=== PATIENT | female | born 1945 | race African-American/Black ===

== ENCOUNTER 2016-12-18 11:01 | Emergency (ER) | payer OTHER ==
--- NOTE | ~2016-12-18 | EGD ---
EGD REPORT [facility] [address] [place] [address] NAME: JOSE HARDEN : [birth year] STATUS : REG ER PAT#: [id number] AGE: 71 ADM/REG DATE : 12/18/16 MR#: [id number] REPORT SERV DATE: 12/18/16 DICTATED BY: EMRE LIPSCOMB DATE: 12/18/16 REPORT STATUS : Draft [facility]ANS[facility]IBED BY: [facility] DATE: 12/18/16 Endoscopy Center Patient Name: Jose Harden Date of : 1945 Attending MD: EMRE LIPSCOMB MD Procedure Date No Time: 12/18/2016 Procedure: Upper GI endoscopy Indications: Dysphagia Referring MD: NIKOLAI LAWTON MD Medicines: Sedation Required Anesthesia Staff Assistance, Monitored Anesthesia Care Complications: No immediate complications. Procedure: Pre-Anesthesia Assessment: - ASA Grade Assessment: III - A patient with severe systemic disease. - General anesthesia under the supervision of an anesthesiologist was determined to be medically necessary for this procedure based on review of the patient's medical history, medications, and prior anesthesia history. After obtaining informed consent, the endoscope was passed under direct vision. Throughout the procedure, the patient's blood pressure, pulse, and oxygen saturations were monitored continuously. The GIF [id number] was introduced through the mouth, and advanced to the second part of duodenum. The upper GI endoscopy was accomplished without difficulty. The patient tolerated the procedure well. Findings: LA Grade A (one or more mucosal breaks less than 5 mm, not extending between tops of 2 mucosal folds) esophagitis with no bleeding was found in the lower third of the esophagus. Biopsies were taken with a cold forceps for histology. No endoscopic abnormality was evident in the esophagus to explain the patient's complaint of dysphagia. It was decided, however, to proceed with dilation of the entire esophagus. A guidewire was placed and the scope was withdrawn. Dilation was performed with a Savary dilator with mild resistance at 42 Fr and mild resistance at 45 Fr. Striped mildly erythematous mucosa without bleeding was found in the gastric antrum. Biopsies were taken with a cold forceps for histology. The duodenal bulb and 2nd part of the duodenum were normal. The cardia and gastric fundus were normal on retroflexion. Impression: - LA Grade A esophagitis. Biopsied. EGD REPORT [place] [id number] [facility] [place]. [address] NAME: JOSE HARDEN : [birth year] STATUS : REG ER PAT#: [id number] AGE: 71 ADM/REG DATE : 12/18/16 MR#: [id number] REPORT SERV DATE: 12/18/16 DICTATED BY: EMRE LIPSCOMB DATE: 12/18/16 REPORT STATUS : Draft TRANSCRIBED BY: [employer] DATE: 12/18/16 - No endoscopic esophageal abnormality to explain patient's dysphagia. Esophagus dilated. Dilated. - Erythematous mucosa in the antrum. Biopsied. - Normal duodenal bulb and 2nd part of the duodenum. Recommendation: - Await pathology results. - liquids for 24 hours then soft diet for 24 hours then as tolerated. - Return to GI clinic in 2 weeks. - Use Protonix (pantoprazole) 40 mg PO BID. Procedure Code(s): --- Professional --- 10941, Esophagogastroduodenoscopy, flexible, transoral; with insertion of guide wire followed by passage of dilator(s) through esophagus over guide wire 91559, Esophagogastroduodenoscopy, flexible, transoral; with biopsy, single or multiple Diagnosis Code(s): --- Professional --- K20.9, Esophagitis, unspecified R13.10, Dysphagia, unspecified K31.9, Disease of stomach and duodenum, unspecified CPT copyright 2013 [employer]. All rights reserved. The codes documented in this report are preliminary and upon clinic cma review may be revised to meet current compliance requirements. EMRE LIPSCOMB MD 12/18/2016 3:15 PM This report has been signed electronically. Number of Addenda: 0 Note Initiated On: 12/18/2016 2:25 PM Scope Withdrawal Time 0 hours 0 minutes 0 seconds [id number] [id number]
--- NOTE | ~2016-12-18 | CN ---
Consultation Report [facility] [address] [place]. [address] NAME: JOSE HARDEN : [birth year] STATUS : [facility] ER PAT#: [id number] AGE: 71 ADM/REG DATE : 12/18/16 MR#: [id number] REPORT SERV DATE: 12/18/16 DICTATED BY: EMRE LIPSCOMB DATE: 12/18/16 REPORT STATUS : Draft TRANSCRIBED BY: MODL DATE: 12/18/16 GI CONSULTATION DATE OF CONSULTATION: REASON FOR CONSULTATION: Severe dysphagia, unable to get solids down, and trouble with liquids also. HISTORY OF PRESENT ILLNESS: Ms. Harden is a 71-year-old white female, who is a patient of Dr. Mart, who has history of colon cancer and is undergoing chemotherapy. She came in with complaints of progressive dysphagia, unable to get solids down, and now having trouble with liquids also. She might have food bolus impaction. PAST MEDICAL HISTORY: Includes colon cancer, reflux, diabetes, and hypertension. FAMILY HISTORY: Noncontributory. REVIEW OF SYSTEMS: A 10-point review of systems otherwise negative. HABITS: Denies any drugs, alcohol, or tobacco currently. FAMILY HISTORY: Noncontributory. MEDICATIONS: See medication list. ALLERGIES: CELEBREX. PHYSICAL EXAMINATION: HEENT: Normocephalic, atraumatic. Extraocular muscles appear intact. NECK: Supple. No JVD. HEART: Regular without murmurs, thrills, or lifts. LUNGS: Clear to auscultation bilaterally. ABDOMEN: Soft and nontender. EXTREMITIES: No cyanosis, clubbing, or edema. LABORATORY DATA: Laboratories showed a sodium of 139, potassium 2.9, chloride 103, CO2 is 24, BUN 10, creatinine 1.15, glucose is 141, white count is 8, hemoglobin 14.3, hematocrit 40.4, platelet count 253, ALT is 83, AST is 56, alkaline phosphatase is 61. Total bilirubin is 0.9. IMPRESSION: 1. Dysphagia, possible food bolus, also concerns about Monserrat esophagitis, severe, given she is on chemo. Consultation Report [facility] [address] [place]. [address] NAME: JOSE HARDEN : [birth year] STATUS : [facility] ER PAT#: [id number] AGE: 71 ADM/REG DATE : 12/18/16 MR#: [id number] REPORT SERV DATE: 12/18/16 DICTATED BY: EMRE LIPSCOMB DATE: 12/18/16 REPORT STATUS : Draft TRANSCRIBED BY: MODL DATE: 12/18/16 2. Elevated transaminases. 3. Hypokalemia. RECOMMENDATION: 1. The patient to get some potassium supplement. 2. We will plan EGD with possible dilation. Risks and benefits of the procedure as well as possible complications of bleeding, infection, perforation, allergic reaction to the medicine were described. Questions entertained and answered. The patient understands and agrees to proceed. 3. We will see at procedure. JSM/MODL Emre Lipscomb M.D. / [id number] CC: Andrew Swift M.D.
[2016-12-18 10:47] LABS: BASOPHILS 0.1 %; BASOPHILS ABSOLUTE 0.01 10/3/uL (0.0-0.16); EOSINOPHILS 0.4 %; EOSINOPHILS ABSOLUTE 0.03 10/3/uL (0.0-0.53); ER CBC TAT 0 Hrs 10 Mins; HEMATOCRIT 40.4 % (36.0-48.0); HEMOGLOBIN 14.3 g/dL (12.0-16.0); IMMATURE GRANULOCYTES 0.3 %; IMMATURE GRANULOCYTES ABSOLUTE 0.02 10/3/uL (0.0-0.11); LYMPHOCYTES 19.7 %; LYMPHOCYTES ABSOLUTE 1.57 10/3/uL (0.67-4.30); MEAN CORPUS HGB CONC 35.4 g/dL (32.0-36.0); MEAN CORPUSCULAR HEMOGLOB 28.7 pg (26.0-34.0); MEAN CORPUSCULAR VOLUME 81.1 fL (80-100); MEAN PLATELET VOLUME 8.9 fL (9.2-13.0); MONOCYTES 7.9 %; MONOCYTES ABSOLUTE 0.63 10/3/uL (0.21-1.20); NEUTROPHILS 71.6 %; PLATELET COUNT 253 10/3/uL (150-400); RBC DISTRIBUTION WIDTH 16.9 % (12.0-16.0); RED CELL COUNT 4.98 10/6/uL (4.0-5.6)
[2016-12-18 10:48] LABS: MANUAL DIFF NO %
[2016-12-18 11:00] LABS: A/G RATIO 1.1 (0.7-1.9); ALBUMIN 3.8 G/DL (3.5-5.0); BUN (BLOOD UREA NITROGEN) 10 MG/DL (6-23); CALCIUM, SERUM 9.2 MG/DL (8.5-10.4); CHLORIDE, SERUM 103 MMOL/L (96-112); CO2 (CARBON DIOXIDE) 24 MMOL/L (24-34); CREATININE 1.15 MG/DL (0.55-1.02); GFR AFRICAN AMERICAN 56 ML/MIN (>=60); GFR NON AFRICAN AMERICAN 49 ML/MIN (>=60); GLOBULIN 3.4 G/DL (2.5-4.1); SGOT(AST) 56 U/L (5-40); SGPT(ALT) 83 U/L (5-65); SODIUM, SERUM 139 MMOL/L (135-148); TOTAL PROTEIN 7.2 G/DL (6.0-8.5)
[~2016-12-18 11:01] MED LIST: ALLEGRA180 PO; AMB10 PO; ASAB PO; ATROVENT HFA17 MCG INH; AYGESTIN5 MG PO; AZITHROMYCIN PO; BACLOFEN20 MG PO; BENICAR HCT PO; CELEXA20 PO; COMBIVENT INH; CYANO1000T PO; DULERA 200 MCG/13 GM INH; DURA12 TOP; DURA25 TOP; ELESTRIN T; ELESTRIN TOP; FLONASE NAS; GAS-X80 MG PO; GLUCPH PO; HYZAAR 100/25 T1 TAB PO; KLOR-CON 1010 MEQ PO; KLOR-CON M2020 MEQ PO; L20 PO; LEVAQUIN750 MG PO; LEVEMIR SC; LOP25 PO; MAGOX4 PO; METHOC500B PO; MINERAL OIL; MIRALAXPKT PO; MOBIC15 MG PO; MUCINEX D1 TAB PO; MUCINEX DM PO; MUCINEX DM1 TAB OR; MULTIPLE VIT PO; NORV10 PO; NOVOLOG SC; OMNARIS; OPTIVE1 ML OP; OS500+D PO; OXYCOD PO; OXYCONTIN15 MG PO; PATADAY; PERCOCET1 TA2 PO; PRILOSEC40 MG PO; PROVHFA INH; ROXICODONE15 MG PO; SINGULAIR1 PO; STERAPRED DS10 MG; SYN.15 PO; SYN125 PO; SYNTHROID PO; VIBRATAB100 MG PO; VITAMIN B PO; VITAMIN B-121000 MC1 SL; VITAMIN D PO; ZANTAC PO
[2016-12-18 11:02] LABS: ALKALINE PHOSPHATASE 61 U/L (45-117); GLUCOSE, SERUM 141 MG/DL (60-99); POTASSIUM, SERUM 2.9 MMOL/L (3.5-5.3); TOTAL BILIRUBIN 0.9 MG/DL (0-1.2)
[2016-12-18 12:34] LABS: PARTIAL THROMBO TIME 26.6 SEC (22.5-37.2)
[2016-12-18 12:35] LABS: PROTIME (NOT ORD) 13.4 SEC (12.0-14.5)
== END 2016-12-18 15:36 | disposition admitted as inpatient to this hospital (09) ==
LOC: ER 11:01
PROVIDERS: Emergency Medicine; Internal Medicine Gastroenterology
PROC: 0D758ZZ Dilation of Esophagus, Via Natural or Artificial Opening Endoscopic (ICD-10-PCS; 2016-12-18)
PROC: 0DB38ZX Excision of Lower Esophagus, Via Natural or Artificial Opening Endoscopic, Diagnostic (ICD-10-PCS; principal; 2016-12-18 15:00)
PROC: 0DB68ZX Excision of Stomach, Via Natural or Artificial Opening Endoscopic, Diagnostic (ICD-10-PCS; 2016-12-18 15:00)
DX: R13.10 Dysphagia, unspecified (principal); J45.909 Unspecified asthma, uncomplicated; I10 Essential (primary) hypertension; K21.9 Gastro-esophageal reflux disease without esophagitis; E11.9 Type 2 diabetes mellitus without complications; Z85.038 Personal history of other malignant neoplasm of large intestine; Z88.1 Allergy status to other antibiotic agents; Z79.84 Long term (current) use of oral hypoglycemic drugs; Z79.899 Other long term (current) drug therapy
CPT/HCPCS: 71010; 80053; 82962; 84132; 85025; 85610; 85730; 88305; 96365; 96366; 99285; J0330; J3010

== ENCOUNTER 2016-12-29 14:30 | Emergency (ER) | payer OTHER ==
[2016-12-29 14:44] LABS: BASOPHILS 0.2 %; BASOPHILS ABSOLUTE 0.02 10/3/uL (0.0-0.16); EOSINOPHILS 0.4 %; EOSINOPHILS ABSOLUTE 0.04 10/3/uL (0.0-0.53); ER CBC TAT 0 Hrs 08 Mins; HEMATOCRIT 38.4 % (36.0-48.0); HEMOGLOBIN 13.2 g/dL (12.0-16.0); IMMATURE GRANULOCYTES 0.2 %; IMMATURE GRANULOCYTES ABSOLUTE 0.02 10/3/uL (0.0-0.11); LYMPHOCYTES 24.1 %; LYMPHOCYTES ABSOLUTE 2.22 10/3/uL (0.67-4.30); MANUAL DIFF NO %; MEAN CORPUS HGB CONC 34.4 g/dL (32.0-36.0); MEAN CORPUSCULAR HEMOGLOB 28.3 pg (26.0-34.0); MEAN CORPUSCULAR VOLUME 82.4 fL (80-100); MEAN PLATELET VOLUME 9.1 fL (9.2-13.0); MONOCYTES 6.9 %; MONOCYTES ABSOLUTE 0.64 10/3/uL (0.21-1.20); NEUTROPHILS 68.2 %; NEUTROPHILS ABSOLUTE 6.27 10/3/uL (2.02-8.40); PLATELET COUNT 236 10/3/uL (150-400); RBC DISTRIBUTION WIDTH 17.1 % (12.0-16.0); RED CELL COUNT 4.66 10/6/uL (4.0-5.6); WHITE BLOOD CELLS 9.2 10/3/uL (4.5-10.5)
[2016-12-29 14:49] LABS: INTERNATIONAL NORMAL RATI 1.1 UNITS (-); PARTIAL THROMBO TIME 24.5 SEC (22.5-37.2); PROTIME (NOT ORD) 13.8 SEC (12.0-14.5)
[2016-12-29 14:59] LABS: BUN (BLOOD UREA NITROGEN) 13 MG/DL (6-23); CALCIUM, SERUM 8.9 MG/DL (8.5-10.4); CHEST PAIN PROFILE TAT 0 Hrs 23 Mins; CHLORIDE, SERUM 102 MMOL/L (96-112); CO2 (CARBON DIOXIDE) 28 MMOL/L (24-34); CREATININE 1.29 MG/DL (0.55-1.02); GFR AFRICAN AMERICAN 49 ML/MIN (>=60); GFR NON AFRICAN AMERICAN 42 ML/MIN (>=60); GLUCOSE, SERUM 110 MG/DL (60-99); POTASSIUM, SERUM 3.1 MMOL/L (3.5-5.3); SODIUM, SERUM 140 MMOL/L (135-148); TROPONIN I <0.02 NG/ML (<0.05)
== END 2016-12-29 16:00 | disposition home or self-care (01) ==
LOC: ER 14:30
PROVIDERS: Emergency Medicine
DX: J44.9 Chronic obstructive pulmonary disease, unspecified (principal); E87.6 Hypokalemia; J45.909 Unspecified asthma, uncomplicated; I10 Essential (primary) hypertension; E11.9 Type 2 diabetes mellitus without complications; Z87.01 Personal history of pneumonia (recurrent); Z88.1 Allergy status to other antibiotic agents; Z79.82 Long term (current) use of aspirin; Z79.84 Long term (current) use of oral hypoglycemic drugs; Z79.899 Other long term (current) drug therapy
CPT/HCPCS: 71010; 80048; 83735; 83880; 84484; 85025; 85610; 85730; 93005; 94640; 96374; 99285; J2930

== ENCOUNTER 2017-01-23 09:44 | Inpatient (IN) | payer OTHER ==
--- NOTE | ~2017-01-23 | DS ---
Discharge Summary [place] [address] [place]. [address] NAME: JOSE HARDEN : [birth year] STATUS : DIS Niya PAT#: [id number] AGE: 71 ADM/REG DATE : 01/23/17 MR#: [id number] REPORT SERV DATE: 01/27/17 DICTATED BY: JR. REINA WILLIAM JOHN DATE: 01/26/17 REPORT STATUS : Draft TRANSCRIBED BY: MODL DATE: 01/26/17 ADMISSION DATE: 01/23/2017 DISCHARGE DATE: 01/26/2017 DISCHARGE DIAGNOSES: 1. Subsegmental pulmonary embolism. 2. Acute hypoxic respiratory failure. 3. History of asthma. 4. Weakness. 5. History of colon cancer, status post sigmoidectomy and FOLFOX chemotherapy. 6. Fecal incontinence with change in stool consistency. OPERATIONS, PROCEDURES, AND TREATMENTS: 1. Chest x-ray, done 01/23/2017, which showed right middle lobe infiltrate. 2. CT angiogram of the chest, done 01/23/2017, which showed:. a. Solid segmental filling defect in the right lower lobe pulmonary artery, compatible with pulmonary embolism. b. Coronary artery disease. c. No effusion or pulmonic infiltrate noted. 3. Modified barium swallow which showed free flow of contrast into the stomach. 4. PA and lateral chest x-ray, done 01/25/2017, which showed no acute process. 5. Echocardiogram, done 01/25/2017, which showed normal left ventricular systolic function with ejection fraction of 65% to 70% with mild left ventricular hypertrophy, mild diastolic dysfunction, normal right ventricular chamber size and systolic function. No significant valvular vegetation or stenosis. CONSULTING PHYSICIAN: Dr. Fournier of Pulmonary Medicine. DISCHARGE MEDICATIONS: 1. Norvasc 10 mg daily. 2. Eliquis 10 mg twice a day through 02/01/2017, then 5 mg twice a day ongoing. 3. Aspirin 81 mg orally daily. 4. Meloxicam 15 mg orally daily. 5. Baclofen 20 mg 3 times a day. 6. Neurontin 300 mg at bedtime. 7. Synthroid 75 mcg orally daily. 8. Singulair 10 mg orally daily. 9. Protonix 40 mg orally twice a day. 10.MiraLAX powder twice a day. 11.Incruse Ellipta 62.5 one puff daily. 12.Metformin 500 mg daily. 13.Oxycodone 10 four times a day. 14.Albuterol metered-dose inhaler two puffs every four hours as needed. 15.Albuterol nebulized every four hours as needed. 16.Dulera 200/5 two puffs twice a day. 17.Ranitidine 75 twice a day as needed. Discharge Summary [place] [address] [place]. [address] NAME: JOSE HARDEN : [birth year] STATUS : DIS Niya PAT#: [id number] AGE: 71 ADM/REG DATE : 01/23/17 MR#: [id number] REPORT SERV DATE: 01/27/17 DICTATED BY: JR. REINA WILLIAM JOHN DATE: 01/26/17 REPORT STATUS : Draft TRANSCRIBED BY: JAMIE DATE: 01/26/17 18.Estrogel cream. HOSPITAL COURSE: The patient was a 71-year-old female with history of colorectal cancer diagnosed in 2015, status post partial colectomy with chemotherapy, who presented to the hospital on 01/23/2017 with shortness of breath. The patient reported that 1 month ago, she developed some shortness of breath. She went to see Dr. Arnold and ultimately had a V/Q scan which was low probability, and then had a CT scan of the chest today which showed a small pulmonary embolism. She did admit to some chest pressure. No pleuritic chest pain. No abdominal pain. Initial exam showed a temperature of 98.2, heart rate 81, blood pressure 122/57, saturating 98% on room air. Exam was mostly unremarkable. CT of the chest is detailed above. For further details of the admission history, physical, and presenting data, please see Dr. Ramsey' dictated history and physical. The patient was admitted to the Clinical Decision Unit for pulmonary embolism. She was initially placed on Lovenox 1 mg/kg subcu b.i.d. and was subsequently changed to Eliquis after verification of her insurance status and ability to afford the medication. Regarding the hypoxia, the patient was on oxygen for a large portion of the hospitalization. At rest, she saturated fine, but with ambulation, her saturations went down into the high 70s. This seemed out of context with the small pulmonary embolism without history of smoking, etc. I consulted Dr. Fournier of Pulmonary Medicine. She had no further suggestions other than pulmonary follow up in 3 to 4 weeks. Regarding the patient's fecal incontinence, this actually improved. She does have normal sphincter tone and no reason to think she has a new neurologic deficit. Regarding the patient's weakness, she continuously complained of an inability to ambulate. She was evaluated by Physical Therapy and is currently being evaluated for acute rehabilitation with [facility]. If she is accepted, the patient will be discharged to [facility] today. If she is not accepted, she will be discharged home with home services and home oxygen. This discharge took 38 minutes for patient encounter, coordination of care, and documentation. DISCHARGE DIET: Regular. ACTIVITY: As tolerated. FOLLOWUP: With Pulmonary, Dr. Arnold; Dr. Ji Butler of Oncology; Dr. Oh Butler of Primary Care. For discharge exam and laboratory, please see daily progress note. Discharge Summary [address] [address] NAME: JOSE HARDEN : [birth year] STATUS : DIS Niya PAT#: [id number] AGE: 71 ADM/REG DATE : 01/23/17 MR#: [id number] REPORT SERV DATE: 01/27/17 DICTATED BY: JR. REINA WILLIAM JOHN DATE: 01/26/17 REPORT STATUS : Draft TRANSCRIBED BY: JAMIE DATE: 01/26/17 REA/JAMIE Jason Reina Jr, MD / [id number]
--- NOTE | ~2017-01-23 | CN ---
Consultation Report [facility] [address] [place]. [address] NAME: JOSE HARDEN : [birth year] STATUS : ADM Niya PAT#: [id number] AGE: 71 ADM/REG DATE : 01/23/17 MR#: [id number] REPORT SERV DATE: 01/25/17 DICTATED BY: TANA KOHLER DATE: 01/24/17 REPORT STATUS : Draft TRANSCRIBED BY: MODL DATE: 01/24/17 PULMONARY CONSULTATION DATE OF CONSULTATION: 01/24/2017 REASON FOR CONSULTATION: Hypoxia. HISTORY OF PRESENT ILLNESS: Ms Harden is a 71-year-old black female, former smoker, with a history of asthma who was admitted complaining of increasing shortness of breath, and chest tightness, but no wheezing or cough/sputum production. As part of her workup, she had a CT angiogram of the chest that revealed a small right lower lobe pulmonary embolism. She was anticoagulated with Lovenox and oral anticoagulation was planned. She was to be discharged today, but was found to be hypoxic with oxygen saturations dropping into the 70s with exertion, so Pulmonary was consulted for assistance. Currently, the patient is complaining of chest tightness, but feels her breathing is better than it was earlier today. She denies cough, sputum production, wheezing, fever, chills, night sweats, mino chest pain, or hemoptysis. She does have a history of colon cancer, and since her recent treatment with colectomy and chemotherapy, she has been complaining of dysphagia. She is followed by Gastroenterology, and per available information, previous workup for dysphagia was unremarkable. With regard to her ongoing shortness of breath and history of asthma, she is followed by her outpatient supervisor insecticide, Dr. Tariq Arnold. She states she has had an extensive workup for her dyspnea including prior sleep study that was negative for obstructive sleep apnea. Additionally, she had the V/Q scan recently that was negative for thromboembolic disease. She states she had a simple exercise study in the Pulmonary Office which did not reveal any significant hypoxia with exertion. She has been on Dulera and Incruse as an outpatient, but did not find these medications beneficial. Additionally, she has rescue albuterol and states this has not helped her breathing. She states that she has been on systemic steroids in the recent past, but did not feel this helped her breathing or chest tightness. She states that she has not had significant cardiac workup. PAST MEDICAL HISTORY: 1. Asthma, as documented above. 2. Former smoker. 3. Newly diagnosed pulmonary embolism. 4. Colon cancer, diagnosed in 2016-status post partial colectomy, followed by chemotherapy. 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 6. Chronic kidney disease. 7. Diabetes mellitus. 8. Hypertension. 9. Degenerative joint disease/back pain. 10.Hypothyroidism. Consultation Report [address] [address] NAME: JOSE HARDEN : [birth year] STATUS : ADM Niya PAT#: [id number] AGE: 71 ADM/REG DATE : 01/23/17 MR#: [id number] REPORT SERV DATE: 01/25/17 DICTATED BY: TANA KOHLER DATE: 01/24/17 REPORT STATUS : Draft TRANSCRIBED BY: JAMIE DATE: 01/24/17 11.GERD. 12.Previous back surgery. 13.Tubal ligation. FAMILY HISTORY: She denies a family history of pulmonary diseases. SOCIAL HISTORY: Ms Harden states she smoked just under one pack of cigarettes per day for 20 years and quit 10 years ago. She denies ethanol intake, past/present drug use, or chewing tobacco. She denies occupational exposures. She is and has one child. MEDICATIONS: Outpatient and inpatient medications were reviewed and are as documented in the record. Her outpatient pulmonary medications are Dulera, Incruse, and albuterol as documented above. ALLERGIES: CELEBREX. REVIEW OF SYSTEMS: Twelve point system review was conducted and is remarkable for the symptoms as described in the history of present illness. She has a history of GI upset including loose stools and dysphagia. PHYSICAL EXAMINATION: VITAL SIGNS: Temperature 98.1 degrees, blood pressure 129/58, heart rate 75, respiratory rate 18, and oxygen saturation 100% on supplemental oxygen at a flow rate of 2 L/minute while at rest. GENERAL: Ill-appearing black female. Alert, oriented, no apparent distress. HEENT: Normocephalic. Atraumatic. There is no scleral icterus. The conjunctivae are clear. The oropharynx is clear. NECK: Supple. There is a there is no lymphadenopathy. LUNGS: Good effort. Clear to auscultation bilaterally. HEART: Regular rate and rhythm. No ectopy noted. ABDOMEN: Soft. Nontender. Nondistended. There are normal bowel sounds in all four quadrants. BILATERAL EXTREMITIES: There is no clubbing, cyanosis, or edema. NEUROLOGIC: Limited exam was conducted and is remarkable for the symptoms as described in the history of present illness. SKIN: No rashes were noted. LABORATORY RESULTS: Labs were reviewed and are as documented in the record. Notable labs include a white blood cell count today of 8.4. The procalcitonin on admission was less than 0.05. IMAGING: The CT angiogram of the chest done this admission was remarkable for a small pulmonary embolism in the segmental artery of the right lower lobe. Consultation Report [facility] [address] [place]. [address] NAME: JOSE HARDEN : [birth year] STATUS : ADM Niya PAT#: [id number] AGE: 71 ADM/REG DATE : 01/23/17 MR#: [id number] REPORT SERV DATE: 01/25/17 DICTATED BY: TANA KOHLER DATE: 01/24/17 REPORT STATUS : Draft TRANSCRIBED BY: JAMIE DATE: 01/24/17 Chest x-ray done today revealed a developing right middle lobe infiltrate, but was otherwise clear. ASSESSMENT AND PLAN: Ms Harden is a 71-year-old black female, former smoker, with a newly diagnosed pulmonary embolism as well as a history of possible asthma who have hypoxia with exertion. She does have a new right middle lobe infiltrate today on chest x-ray as noted above. She has a history of dysphagia and this right middle lobe infiltrate is worrisome for possible aspiration. She has ongoing chest tightness, but has not had significant cardiac workup in the past. 1. I recommend recheck chest x-ray to reassess the newly noted infiltrate. 2. Check procalcitonin. 3. Recheck white blood cell count. 4. We would hold off on treating with antibiotics until the above information is available as the patient does not have mino symptoms of pneumonia. 5. As noted, she has recent dysphagia and her new right middle lobe infiltrates worrisome for possible aspiration. Recommend checking a swallow evaluation. 6. I agree with echocardiogram as ordered by the patient's inpatient physician. Additionally, we would consider cardiac evaluation for ongoing chest tightness. 7. As noted, she has a new pulmonary embolism. She has been on Lovenox. Agree with anticoagulation. She could be treated with Eliquis or Xarelto upon discharge. 8. Titrate supplemental oxygen as needed. She may need to be discharged with supplemental oxygen if she does not improve. 9. Bronchodilators and improved pulmonary toilet-she should continue on Dulera and Spiriva here as an inpatient. We would add nebulized albuterol with EzPAP. 10.Plan to review her Pulmonary office notes for further information regarding her previous workup. 11.Further recommendations to follow after additional information is available. Thank you very much for this consultation. PS/CONSUELOL Tana Kohler M.D. / [id number] CC: Jason Reina Jr, MD Bruce Johnson, M.D.
--- NOTE | ~2017-01-23 | HP ---
History And Physical [place] [address] [facility] [place]. [address] NAME: JOSE HARDEN : 49 STATUS : ADM Niya PAT#: [id number] AGE: 71 ADM/REG DATE : 01/23/17 MR#: [id number] REPORT SERV DATE: 01/23/17 DICTATED BY: EDWAR RAMSEY DATE: 01/23/17 REPORT STATUS : Draft TRANSCRIBED BY: MODL DATE: 01/23/17 DATE OF ADMISSION: 01/23/2017 CHIEF COMPLAINT: Shortness of breath. HISTORY OF PRESENT ILLNESS: The patient is a very pleasant 71-year-old white female. She has a history of colorectal CA, diagnosed in 2016, and underwent partial colectomy and chemotherapy, no local radiation. The patient reports about a month ago, she developed some dyspnea. She states she felt short of breath and was seen several times, actually seen at Dr. Arnold's office by the nurse practitioner and also seen in the ER today. Ultimately, she had a V/Q scan, which was low probability, and then had a CT of the chest today, which reported a small PE. She states she has had chest pressure, but no pleuritic chest pain, no abdominal pain, no documented fevers, and no current coughing. Otherwise, she complains of what sounds like some bowel incontinence, but it is not a new symptom, she has had it for over a month. She was examined by the ER physician and had normal sphincter tone, and she is actually seeing the GI doctor for similar complaints. She states it is not diarrheal stools, it is soft stools, those are her only complaints today. PAST MEDICAL HISTORY: 1. T4 N1b M0 stage colorectal cancer, status post resection and chemo. 2. CKD with a baseline creatinine around 1.5. 3. GERD. 4. Diabetes mellitus. 5. Hypertension. 6. Tobacco abuse. 7. Osteoarthritis. 8. Hypothyroidism. 9. COPD/asthma. PAST SURGICAL HISTORY: 1. She has had a colon resection. 2. Back surgery. 3. Tubal ligation. SOCIAL HISTORY: She does drink alcohol. She quit smoking in 2005. She is , her is at bedside. ALLERGIES: CELEBREX. HOME MEDICATIONS: Reviewed and attached. FAMILY HISTORY: Positive for colon cancer, diabetes, and heart disease. REVIEW OF SYSTEMS: Full 10-point review of systems was obtained. Pertinent positives are already mentioned in the HPI. History And Physical [address] [address] NAME: JOSE HARDEN : 49 STATUS : ADM Niya PAT#: [id number] AGE: 71 ADM/REG DATE : 01/23/17 MR#: [id number] REPORT SERV DATE: 01/23/17 DICTATED BY: EDWAR RAMSEY DATE: 01/23/17 REPORT STATUS : Draft TRANSCRIBED BY: JAMIE DATE: 01/23/17 PHYSICAL EXAMINATION: VITAL SIGNS: BP 122/57, sats 98% on room air, pulse 81, temp 98.2. GENERAL: Well-developed female. HEENT: Normocephalic and atraumatic. Throat is clear. NECK: Supple. HEART: Regular rate and rhythm. LUNGS: Grossly clear. ABDOMEN: Soft, nontender, nondistended. EXTREMITIES: Warm and dry. Skin is intact, no rash or lesion. She has no peripheral edema. LABORATORY AND X-RAY DATA: CT of the chest shows no pneumonia and a solitary segmental filling defect in the right lower lobe pulmonary artery, compatible with PE. Chest x-ray shows a questionable pneumonia on the right middle lobe. Basic metabolic panel is normal, other than a potassium of 3.2, glucose of 246, BUN and creatinine 25 and 1.48, total bilirubin is 1.3, ALT is 94, AST is 54. Troponin is 0.02. H and H 15 and 42, white count 14, platelets 219. Coags are normal. Lung scan from 01/16 shows a low probability for PE. ASSESSMENT/PLAN: 1. Very small segmental pulmonary embolus. We will place her on Lovenox subcu over the next 24 hours and observe her on tele and provide O2. We will likely switch her over to one of the novel oral anticoagulants tomorrow. If she is stable, she could potentially go home tomorrow after starting either Xarelto or one of the alternatives. I am going to stop any hormone therapy she is on. 2. Chronic kidney disease. Her creatinine has bumped since she received chemotherapy. I think she needs tailoring of her medical regimen. I am going to hold her JETER-2 inhibitor. I am going to stop her ARB and her diuretic. We will follow her creatinine serially and see if her creatinine improves with these measures. Could also consider stopping her metformin. 3. History of asthma. Not wheezing today. She just finished a course of prednisone, nebs, and inhalers. 4. History of colorectal CA, per Dr. Butler as an outpatient. 5. Abnormal LFTs. This is not a new issue. She has a mild elevation of her transaminases, but I noticed this has been present since at least 03/2016. She has had multiple scans since then, her last one was in September. Would simply follow. 6. Bowel incontinence over the last month. Normal sphincter tone on exam today by the ER physician. This could be worked up as an outpatient. I do not think we need to pursue this, this admission. 7. Deep venous thrombosis prophylaxis. She is fully anticoagulated. 8. Disposition, pending above. YRN/JAMIE Edwar Gore History And Physical [address] [address] NAME: JOSE HARDEN : 49 STATUS : ADM Niya PAT#: [id number] AGE: 71 ADM/REG DATE : 01/23/17 MR#: [id number] REPORT SERV DATE: 01/23/17 DICTATED BY: EDWAR RAMSEY DATE: 01/23/17 REPORT STATUS : Draft TRANSCRIBED BY: JAMIE DATE: 01/23/17 Andrew Ramsey / [id number] CC: Jason Reina Jr, MD Chad E. Paxson, DO Darrell Johnson, M.D.
[2017-01-23 08:42] LABS: BASOPHILS 0.1 %; BASOPHILS ABSOLUTE 0.01 10/3/uL (0.0-0.16); EOSINOPHILS 0.1 %; EOSINOPHILS ABSOLUTE 0.02 10/3/uL (0.0-0.53); HEMATOCRIT 41.6 % (36.0-48.0); HEMOGLOBIN 15.2 g/dL (12.0-16.0); IMMATURE GRANULOCYTES 0.7 %; LYMPHOCYTES 12.8 %; MEAN CORPUSCULAR HEMOGLOB 29.9 pg (26.0-34.0); MEAN CORPUSCULAR VOLUME 81.9 fL (80-100); MONOCYTES 4.8 %; MONOCYTES ABSOLUTE 0.67 10/3/uL (0.21-1.20); NEUTROPHILS 81.5 %; NEUTROPHILS ABSOLUTE 11.44 10/3/uL (2.02-8.40); PLATELET COUNT 219 10/3/uL (150-400); RBC DISTRIBUTION WIDTH 15.3 % (12.0-16.0); RED CELL COUNT 5.08 10/6/uL (4.0-5.6)
[2017-01-23 08:44] LABS: ER CBC TAT 0 Hrs 09 Mins; MANUAL DIFF NO %; MEAN CORPUS HGB CONC 36.5 g/dL (32.0-36.0)
[2017-01-23 08:49] LABS: INTERNATIONAL NORMAL RATI 1.1 UNITS (-); PROTIME (NOT ORD) 13.7 SEC (12.0-14.5)
[2017-01-23 08:53] LABS: PARTIAL THROMBO TIME 22.4 SEC (22.5-37.2)
[2017-01-23 08:56] LABS: ALBUMIN 3.9 G/DL (3.5-5.0); ALKALINE PHOSPHATASE 57 U/L (45-117); CHEST PAIN PROFILE TAT 0 Hrs 21 Mins; CHLORIDE, SERUM 97 MMOL/L (96-112); CO2 (CARBON DIOXIDE) 25 MMOL/L (24-34); CREATININE 1.48 MG/DL (0.55-1.02); DIRECT BILIRUBIN 0.4 MG/DL (0.0-0.4); GFR AFRICAN AMERICAN 41 ML/MIN (>=60); GFR NON AFRICAN AMERICAN 36 ML/MIN (>=60); INDIRECT BILIRUBIN(NOT ORDER) 0.9 MG/DL (0.1-0.9); POTASSIUM, SERUM 3.2 MMOL/L (3.5-5.3); SGOT(AST) 54 U/L (5-40); SGPT(ALT) 94 U/L (5-65); SODIUM, SERUM 135 MMOL/L (135-148); TOTAL BILIRUBIN 1.3 MG/DL (0-1.2); TOTAL PROTEIN 7.1 G/DL (6.0-8.5); TROPONIN I <0.02 NG/ML (<0.05)
[2017-01-23 08:59] LABS: BUN (BLOOD UREA NITROGEN) 25 MG/DL (6-23); GLUCOSE, SERUM 246 MG/DL (60-99)
[2017-01-23] MEDS ORDERED: NORV10 PO (11:06)
[2017-01-23] MEDS ORDERED: BACLOFEN20 MG PO (11:07)
[2017-01-23] MEDS ORDERED: ASAB PO (11:07)
[2017-01-23] MEDS ORDERED: DULERA 200 MCG/13 GM INH (11:09)
[2017-01-23] MEDS ORDERED: NEUR300 PO (11:10)
[2017-01-23] MEDS ORDERED: PROTONIX PO (11:10)
[2017-01-23] MEDS ORDERED: HYZAAR 100/25 T1 TAB PO (11:10)
[2017-01-23] MEDS ORDERED: LEVOTHYROXIN75 MCG PO (11:10)
[2017-01-23] MEDS ORDERED: GLUCPH PO (11:11)
[2017-01-23] MEDS ORDERED: MOBIC15 MG PO (11:12)
[2017-01-23] MEDS ORDERED: AYGESTIN5 MG PO (11:12)
[2017-01-23] MEDS ORDERED: SINGULAIR1 PO (11:13)
[2017-01-23] MEDS ORDERED: ZANTAC 75 PO (11:13)
[2017-01-23] MEDS ORDERED: MIRALAX POWDER1 PKT PO (11:14)
[2017-01-23] MEDS ORDERED: OXYCOD PO (11:14)
[2017-01-23] MEDS ORDERED: ALBUTEROL5 INH (11:15)
[2017-01-23] MEDS ORDERED: PROVHFA INH (11:15)
[2017-01-23] MEDS ORDERED: ESTROGEL TD (11:19)
[2017-01-23] MEDS ORDERED: INCRUSE ELLI62.5 MCG INH (11:34)
[2017-01-23] MEDS ORDERED: P20 PO (11:38)
[2017-01-23 16:54] LABS: PROCALCITONIN < 0.05 ng/mL (<0.5)
[2017-01-23 23:15] LABS: WBC (NOT ORDERED) (RFLEX) 0 (0-5)
[2017-01-23 23:21] LABS: ASCORBIC ACID (UR NOT ORDER) 20 (NEG); BILIRUBIN, URINE NEGATIVE (NEG); KETONE, URINE 20 MG/DL (NEG); LEUKOCYTE ESTERASE(NOT OR NEG (NEG)
[2017-01-24 05:27] LABS: BASOPHILS 0.1 %; BASOPHILS ABSOLUTE 0.01 10/3/uL (0.0-0.16); EOSINOPHILS 0.4 %; EOSINOPHILS ABSOLUTE 0.03 10/3/uL (0.0-0.53); HEMATOCRIT 36.7 % (36.0-48.0); HEMOGLOBIN 13.2 g/dL (12.0-16.0); IMMATURE GRANULOCYTES 0.4 %; IMMATURE GRANULOCYTES ABSOLUTE 0.03 10/3/uL (0.0-0.11); LYMPHOCYTES 28.8 %; LYMPHOCYTES ABSOLUTE 2.41 10/3/uL (0.67-4.30); MANUAL DIFF NO %; MEAN CORPUSCULAR HEMOGLOB 29.5 pg (26.0-34.0); MEAN CORPUSCULAR VOLUME 81.9 fL (80-100); MEAN PLATELET VOLUME 8.7 fL (9.2-13.0); MONOCYTES 8.1 %; MONOCYTES ABSOLUTE 0.68 10/3/uL (0.21-1.20); NEUTROPHILS 62.2 %; NEUTROPHILS ABSOLUTE 5.21 10/3/uL (2.02-8.40); PLATELET COUNT 192 10/3/uL (150-400); RBC DISTRIBUTION WIDTH 15.2 % (12.0-16.0); RED CELL COUNT 4.48 10/6/uL (4.0-5.6); WHITE BLOOD CELLS 8.4 10/3/uL (4.5-10.5)
[2017-01-24 05:44] LABS: CALCIUM, SERUM 8.3 MG/DL (8.5-10.4); CHLORIDE, SERUM 103 MMOL/L (96-112); CO2 (CARBON DIOXIDE) 26 MMOL/L (24-34); POTASSIUM, SERUM 3.8 MMOL/L (3.5-5.3); SODIUM, SERUM 138 MMOL/L (135-148)
[2017-01-24 05:53] LABS: BUN (BLOOD UREA NITROGEN) 15 MG/DL (6-23); CREATININE 0.87 MG/DL (0.55-1.02); GFR AFRICAN AMERICAN 79 ML/MIN (>=60); GFR NON AFRICAN AMERICAN 68 ML/MIN (>=60); GLUCOSE, SERUM 116 MG/DL (60-99)
[2017-01-25 05:38] LABS: BASOPHILS 0.1 %; BASOPHILS ABSOLUTE 0.01 10/3/uL (0.0-0.16); EOSINOPHILS 0.6 %; EOSINOPHILS ABSOLUTE 0.04 10/3/uL (0.0-0.53); HEMATOCRIT 39.5 % (36.0-48.0); IMMATURE GRANULOCYTES 0.3 %; IMMATURE GRANULOCYTES ABSOLUTE 0.02 10/3/uL (0.0-0.11); LYMPHOCYTES 31.5 %; LYMPHOCYTES ABSOLUTE 2.29 10/3/uL (0.67-4.30); MEAN CORPUS HGB CONC 35.4 g/dL (32.0-36.0); MEAN CORPUSCULAR HEMOGLOB 29.4 pg (26.0-34.0); MEAN CORPUSCULAR VOLUME 82.8 fL (80-100); MEAN PLATELET VOLUME 9.1 fL (9.2-13.0); MONOCYTES 7.7 %; MONOCYTES ABSOLUTE 0.56 10/3/uL (0.21-1.20); NEUTROPHILS 59.8 %; NEUTROPHILS ABSOLUTE 4.35 10/3/uL (2.02-8.40); PLATELET COUNT 202 10/3/uL (150-400); RBC DISTRIBUTION WIDTH 15.1 % (12.0-16.0); RED CELL COUNT 4.77 10/6/uL (4.0-5.6); WHITE BLOOD CELLS 7.3 10/3/uL (4.5-10.5)
[2017-01-25 05:40] LABS: MANUAL DIFF NO %
[2017-01-25 05:45] LABS: CALCIUM, SERUM 8.6 MG/DL (8.5-10.4); CHLORIDE, SERUM 104 MMOL/L (96-112); CO2 (CARBON DIOXIDE) 25 MMOL/L (24-34); CREATININE 0.72 MG/DL (0.55-1.02); GFR AFRICAN AMERICAN 99 ML/MIN (>=60); GFR NON AFRICAN AMERICAN 85 ML/MIN (>=60); GLUCOSE, SERUM 99 MG/DL (60-99); POTASSIUM, SERUM 3.7 MMOL/L (3.5-5.3); SODIUM, SERUM 139 MMOL/L (135-148)
[2017-01-25 05:47] LABS: BUN (BLOOD UREA NITROGEN) 10 MG/DL (6-23)
[2017-01-25 06:21] LABS: PROCALCITONIN <0.05 ng/mL (<0.5)
== END 2017-01-26 16:39 | DRG 175 ==
LOC: ER 09:44 → CDU1 11:08
PROVIDERS: Internal Medicine; Physician Assistant
DX: I26.99 Other pulmonary embolism without acute cor pulmonale (principal); J96.01 Acute respiratory failure with hypoxia; E11.22 Type 2 diabetes mellitus with diabetic chronic kidney disease; I12.9 Hypertensive chronic kidney disease with stage 1 through stage 4 chronic kidney disease, or unspecified chronic kidney disease; N18.3 Chronic kidney disease, stage 3 (moderate); E03.9 Hypothyroidism, unspecified; J44.9 Chronic obstructive pulmonary disease, unspecified; K21.9 Gastro-esophageal reflux disease without esophagitis; Z92.21 Personal history of antineoplastic chemotherapy; Z90.49 Acquired absence of other specified parts of digestive tract; Z85.038 Personal history of other malignant neoplasm of large intestine; Z87.891 Personal history of nicotine dependence
CPT/HCPCS: 71010; 71020; 71275; 74220; 80048; 80076; 81001; 81240; 81241; 82962; 83690; 83735; 84145; 84484; 85025; 85610; 85730; 93005; 94640; 97161-GP; 99285; A9270-GY; C8929; G8978-CJ-GP; G8979-CI-GP; J3010; Q9957; Q9967